=== PATIENT | male | born 1965 | race Caucasian/White ===

== ENCOUNTER 2019-01-12 10:31 | Emergency (ER) | payer OTHER ==
[~2019-01-12] VITALS: Ht 175.3 cm; Wt 70.8 kg
[2019-01-12 10:45] VITALS: Ht 175.3 cm; Wt 70.8 kg
[2019-01-12 14:55] VITALS: BP 121/68
== END 2019-01-12 14:56 ==
LOC: ED 10:31
DX: S09.90XA Unspecified injury of head, initial encounter (principal); S30.813A Abrasion of scrotum and testes, initial encounter; M79.10 Myalgia, unspecified site; G40.909 Epilepsy, unspecified, not intractable, without status epilepticus; I10 Essential (primary) hypertension; Z86.19 Personal history of other infectious and parasitic diseases; Z86.73 Personal history of transient ischemic attack (TIA), and cerebral infarction without residual deficits; Z98.890 Other specified postprocedural states; Y04.2XXA Assault by strike against or bumped into by another person, initial encounter; Y93.89 Activity, other specified; Y92.89 Other specified places as the place of occurrence of the external cause; Y99.8 Other external cause status
CPT/HCPCS: J1100; J1885